=== PATIENT | female | born 1950 | race Caucasian/White ===

== ENCOUNTER → 2017-03-12 | Outpatient (CLI) | payer MEDICARE ==
--- NOTE | 2017-03-15 10:18 | MM ---
Reason for exam: screening (asymptomatic). Last mammogram was performed 1 year ago. History: Patient is postmenopausal. Family history of breast cancer in 2 paternal aunts. Took hormonal contraceptives for 3 years. Physical Findings: A clinical breast exam by your physician is recommended on an annual basis and results should be correlated with mammographic findings. MG 3D Screening Mammo W/Cad Bilateral CC and MLO view(s) were taken. Prior study comparison: March 10, 2016, bilateral MG 3d screening mammo w/cad. November 13, 2014, bilateral MG screening mammo w CAD. There are scattered fibroglandular densities. There is no discrete abnormality. No significant changes when compared with prior studies. ASSESSMENT: Negative, BI-RAD 1 RECOMMENDATION: Routine screening mammogram of both breasts in 1 year.
== END ==
LOC: RADMAMWWP 13:18
PROVIDERS: ATTEND Family Medicine
DX: Z12.31 Encounter for screening mammogram for malignant neoplasm of breast (principal)
CPT/HCPCS: 77063; G0202

== ENCOUNTER → 2018-04-01 | Outpatient (CLI) | payer MEDICARE ==
--- NOTE | 2018-04-05 14:29 | MM ---
Reason for exam: screening (asymptomatic). Last mammogram was performed 1 year and 1 month ago. History: Patient is postmenopausal. Family history of breast cancer in sister, breast cancer in paternal aunt, and breast cancer in aunt. Took hormonal contraceptives for 3 years. Physical Findings: A clinical breast exam by your physician is recommended on an annual basis and results should be correlated with mammographic findings. MG 3D Screening Mammo W/Cad Bilateral CC and MLO view(s) were taken. Prior study comparison: March 12, 2017, bilateral MG 3d screening mammo w/cad. March 10, 2016, bilateral MG 3d screening mammo w/cad. The breast tissue is almost entirely fat. There are typically benign round calcifications in both breasts. There is chronic nodularity bilaterally. There is no discrete abnormality. ASSESSMENT: Benign, BI-RAD 2 RECOMMENDATION: Routine screening mammogram of both breasts in 1 year.
== END | disposition home or self-care (01) ==
LOC: RADMAMWWP 07:34
PROVIDERS: ATTEND Family Medicine
DX: Z12.31 Encounter for screening mammogram for malignant neoplasm of breast (principal)
CPT/HCPCS: 77063; 77067

== ENCOUNTER → 2019-07-24 | Outpatient (CLI) | payer MEDICARE ==
--- NOTE | 2019-07-24 19:31 | BD ---
EXAMINATION TYPE: Axial Bone Density DATE OF EXAM: 07/24/2019 COMPARISON: 2014 CLINICAL HISTORY: 68-year-old female osteoporosis Height: 67 Weight: 180 FRAX RISK QUESTIONS: Alcohol (3 or more units per day): no Family History (Parent hip fracture): no Glucocorticoids (More than 3mos): no (Ex: prednisone, prednisolone, methylprednisolone, dexamethasone, and hydrocortisone). History of Fracture in Adulthood: yes Secondary Osteoporosis: 1. Type 1 Diabetes: no 2. Hyperthyroidism: no 3. Menopause before 45: no 4. Malnutrition: no 5. Chronic liver disease: no Rheumatoid Arthritis: no Current Tobacco Use: no RISK FACTORS HISTORY OF: Family History of Osteoporosis: yes Active: yes Diet low in dairy products/other sources of calcium: somewhat -casein intolerant Postmenopausal woman: yes Take estrogen and/or progesterone medications: not now How long: hormonal contraceptives about 3 years Lost more than 2 inches in height since high school: no Frequent falls: no Poor Health: no Hyperparathyroidism: no Adrenal Insufficiency: no MEDICATIONS: Prednisone or other steroids: no Thyroid Medications:no Osteoporosis Medications: no Additional Medications: calcium & Vitamin D Additional History: right lower leg fracture 1995 EXAM MEASUREMENTS: Bone mineral densitometry was performed using the [employer] System. Bone mineral density as measured about the Lumbar spine is: ----- L1-L4(G/cm2): 1.240 T Score Values are as follows: ----- L2: 0.3 ----- L3: 0.6 ----- L4: 0.5 ----- L1-L4: 0.5 Bone mineral density has: Decreased -3.1% since study of: 10/23/2015 Bone mineral density about the R hip (g/cm2): 0.825 Bone mineral density about the L hip (g/cm2): 0.892 T Score values are as follows: -----R Neck: -1.5 -----L Neck: -1.0 -----R Total: -0.4 -----L Total: -0.5 Bone mineral density has: Decreased -6.1% since study of: 10/23/2015 IMPRESSION: Osteopenia (T Score between -2.5 and -1). There is slightly increased risk of fracture and the patient may be considered for treatment. Re-Screen 2-5 years. NOTE: T-SCORE=SD OF THE YOUNG ADULT MEAN.
--- NOTE | 2019-07-25 11:24 | MM ---
Reason for exam: screening (asymptomatic). Last mammogram was performed 1 year and 4 months ago. History: Patient is postmenopausal. Family history of breast cancer in sister at age 65 and breast cancer in 2 paternal aunts. Took hormonal contraceptives for 3 years. Physical Findings: A clinical breast exam by your physician is recommended on an annual basis and results should be correlated with mammographic findings. MG 3D Screening Mammo W/Cad Bilateral CC and MLO view(s) were taken. Prior study comparison: April 01, 2018, bilateral MG 3d screening mammo w/cad. March 12, 2017, bilateral MG 3d screening mammo w/cad. There are scattered fibroglandular densities. There is chronic nodularity in the right breast. There is no discrete abnormality. ASSESSMENT: Benign, BI-RAD 2 RECOMMENDATION: Routine screening mammogram of both breasts in 1 year.
== END ==
LOC: RADMAMWWP 09:27
PROVIDERS: ATTEND Family Medicine
DX: Z12.31 Encounter for screening mammogram for malignant neoplasm of breast (principal); M89.9 Disorder of bone, unspecified; M85.80 Other specified disorders of bone density and structure, unspecified site
CPT/HCPCS: 77063; 77067; 77080

== ENCOUNTER → 2020-04-12 | Outpatient (CLI) | payer MEDICARE ==
--- NOTE | 2020-04-12 14:51 | XR ---
EXAMINATION TYPE: XR chest 2V DATE OF EXAM: 04/12/2020 COMPARISON: NONE HISTORY: Shortness of breath and sore throat for approximately 2 months. TECHNIQUE: Frontal and lateral views of the chest are obtained. FINDINGS: There is no focal air space opacity, pleural effusion, or pneumothorax seen. The cardiac silhouette size is within normal limits. The osseous structures are intact. Very minimal degenerati ve change of the spine. IMPRESSION: No acute cardiopulmonary process.
--- NOTE | 2020-04-12 14:54 | XR ---
EXAMINATION TYPE: XR soft tissue neck DATE OF EXAM: 04/12/2020 COMPARISON: NONE HISTORY: Shortness of breath and sore throat for approximately 2 months TECHNIQUE: Frontal and lateral views of the soft tissues the neck were obtained FINDINGS: There is sclerosis and a mild compression deformity of C5. Moderate degenerative change of the mid to lower cervical spine demonstrated as uncovertebral hypertrophy, intervertebral disc space narrowing and anterior osteophytes. No abnormal prevertebral soft tissue swelling. Epiglottis is unremarkable. Oropharynx and nasopharynx are maintained. Cricoid and arytenoid calcifie d cartilage with no suspicious radiopaque foreign body. Lung apices are well aerated. IMPRESSION: Sclerotic compression deformity of C5 is age indeterminate. Sclerosis could indicate chronic disease manager nicity or pathologic compression deformity. MRI of the cervical spine with and without contrast is re commended for further evaluation. Correlation for point tenderness also recommended. A Yellow level critical message alert has been initiated for Martita Gardner MD via the [employer] Critical Results System on 04/12/2020 2:51 PM. This message alert has been sent to Martita puente MD via the preferences provided by the clinician for the receipt of Radiology Critical Findings. Message ID [id number].
== END | disposition home or self-care (01) ==
LOC: RADXRMAIN 14:19
PROVIDERS: ATTEND Family Medicine
DX: R13.19 Other dysphagia (principal); R06.00 Dyspnea, unspecified
CPT/HCPCS: 70360; 71046

== ENCOUNTER → 2020-04-16 | Outpatient (CLI) | payer MEDICARE | END | disposition home or self-care (01) | LOC: RADMRIMAIN 07:08 | PROVIDERS: ATTEND Nurse Practitioner | DX: Z53.9 Procedure and treatment not carried out, unspecified reason (principal) ==

== ENCOUNTER → 2020-04-17 | Outpatient (CLI) | payer MEDICARE ==
--- NOTE | 2020-04-17 16:59 | MR ---
EXAMINATION TYPE: MR cervical spine wo/w con DATE OF EXAM: 04/17/2020 COMPARISON: HISTORY: Pathologic cervical disc degeneration, restricted air flow CONTRAST: Standard multiplanar, multisequence MRI departmental protocol utilizing 8.5 mL intravenous Gadavist g adolinium contrast. The cervical vertebra have normal alignment. There is degenerative disc space narrowing and decreased signal in the disks on the T2 images from C4 to C7. There is small posterior disc herniations at C5- 6 and C6-7. There is developmentally adequate spinal canal and no spinal stenosis. Cervical spinal co rd has normal signal pattern. There is no edema. Spinal canal measures almost 10 mm at C5-6 and C6-7. The brainstem is intact. There is no compression fracture. There is moderate anterior osteophyte for mation at C5-6 and C6-7. There is no cervical paraspinal mass. There is multilevel mild cervical hype rtrophic facet arthropathy. The contrast images show no pathologic enhancement. IMPRESSION: Mild posterior disc herniations at C5-6 and C6-7. No spinal stenosis. No fracture. Hypertrophic degen erative changes.
== END | disposition home or self-care (01) ==
LOC: RADMRIMAIN 15:36
PROVIDERS: ATTEND Nurse Practitioner
DX: M50.222 Other cervical disc displacement at C5-C6 level (principal); M47.812 Spondylosis without myelopathy or radiculopathy, cervical region
CPT/HCPCS: 72156; A9585

== ENCOUNTER → 2020-05-09 | Outpatient (CLI) | payer MEDICARE ==
--- NOTE | 2020-05-09 10:45 | FL ---
EXAMINATION TYPE: FL barium swallow DATE OF EXAM: 05/09/2020 CLINICAL INDICATION: 69 year-old female R13.19, M50.30 DYSPHAGIA, CERVICAL DISC DEGENERATION COMPARISON: Correlation MRI cervical spine 04/17/2020 Total Fluoroscopy Time: 1 minute 41 seconds Coronal images: 40 FINDINGS: The swallowing mechanism is normal. There is anterior endplate spondylosis relating to moderate degenerative disc disease at C5-C6 and C6 -C7 causing mild impression on the posterior wall of the upper cervical esophagus. There is also mild hypertrophy of the cricopharyngeus muscle noted. The thoracic portion has a normal course and caliber. Mild tertiary peristaltic contractions are demo nstrated. The mucosa appears normal. No suspicious filling defect is encountered. There is a tiny sliding hiatal hernia. Gastroesophageal reflux could not be elicited during the cours e of the exam. IMPRESSION: 1. Moderate endplate spondylosis at C5-C6 and C6-C7 causing mild impression along the posterior wall of the upper cervical esophagus. No obstructive change. 2. Additional mild CP muscle hypertrophy. 3. Mild esophageal dysmotility, age-related change. 4. Tiny sliding hiatal hernia without gastroesophageal reflux.
== END | disposition home or self-care (01) ==
LOC: RADUSWWP 09:45
PROVIDERS: ATTEND Family Medicine
DX: K22.4 Dyskinesia of esophagus (principal)
CPT/HCPCS: 74220

== ENCOUNTER → 2020-09-04 | Outpatient (CLI) | payer MEDICARE ==
--- NOTE | 2020-09-04 11:45 | US ---
EXAMINATION TYPE: US pelvic complete DATE OF EXAM: 09/04/2020 COMPARISON: NONE CLINICAL HISTORY: E28.9 Ovarian dysfunction. TECHNIQUE: Transvaginal (TV) and Transabdominal (TA) . Transabdominal sonographic images of the pel vis were acquired. Transvaginal sonographic images were medically necessary to better assess the fol lowing anatomy: Ovaries Date of LMP: post menopausal EXAM MEASUREMENTS: Uterus: 7.2 x 2.7 x 4.4 cm Endometrial Stripe: 0.6 cm Right Ovary: not visualized Left Ovary: 4.9 x 3.5 x 4.8 cm 1. Uterus: wnl 2. Endometrium: 0.3 cm of fluid seen within 3. Right Ovary: Obscured by overlying bowel gas 4. Left Ovary: Size appears enlarged considering patient is post menopausal 5. Bilateral Adnexa: wnl 6. Posterior cul-de-sac: wnl Urinary bladder is sonolucent. Posterior wall is normal. IMPRESSION: 1. Small amount of fluid within the endometrial canal.
== END | disposition home or self-care (01) ==
LOC: RADUSWWP 09:19
PROVIDERS: ATTEND Family Medicine
DX: N85.8 Other specified noninflammatory disorders of uterus (principal)
CPT/HCPCS: 76830; 76856

== ENCOUNTER → 2020-09-05 | Outpatient (CLI) | payer MEDICARE ==
--- NOTE | 2020-09-09 08:15 | MM ---
Reason for exam: screening (asymptomatic). Last mammogram was performed 1 year and 1 month ago. History: Patient is postmenopausal. Family history of breast cancer in sister at age 65 and breast cancer in 2 paternal aunts. Took hormonal contraceptives for 3 years. Physical Findings: A clinical breast exam by your physician is recommended on an annual basis and results should be correlated with mammographic findings. MG 3D Screening Mammo W/Cad Bilateral CC and MLO view(s) were taken. Prior study comparison: July 24, 2019, bilateral MG 3d screening mammo w/cad. April 01, 2018, bilateral MG 3d screening mammo w/cad. There are scattered fibroglandular densities. There is chronic nodularity in the right breast. There is no discrete abnormality. ASSESSMENT: Negative, BI-RAD 1 RECOMMENDATION: Routine screening mammogram of both breasts in 1 year.
== END | disposition home or self-care (01) ==
LOC: RADMAMWWP 07:53
PROVIDERS: ATTEND Family Medicine
DX: Z12.31 Encounter for screening mammogram for malignant neoplasm of breast (principal)
CPT/HCPCS: 77063; 77067

== ENCOUNTER → 2022-03-04 | Outpatient (CLI) | payer MEDICARE ==
--- NOTE | 2022-03-05 12:38 | MM ---
Reason for exam: screening (asymptomatic). Last mammogram was performed 1 year and 6 months ago. History: Patient is postmenopausal. Family history of breast cancer in sister at age 65 and breast cancer in 2 paternal aunts. Took hormonal contraceptives for 3 years. Physical Findings: A clinical breast exam by your physician is recommended on an annual basis and results should be correlated with mammographic findings. MG 3D Screening Mammo W/Cad Bilateral CC and MLO view(s) were taken. Prior study comparison: September 05, 2020, bilateral MG 3d screening mammo w/cad. July 24, 2019, bilateral MG 3d screening mammo w/cad. There are scattered fibroglandular densities. There are benign appearing round calcifications bilaterally. There is chronic nodularity in the right breast. There is no discrete abnormality. ASSESSMENT: Benign, BI-RAD 2 RECOMMENDATION: Routine screening mammogram of both breasts in 1 year.
== END | disposition home or self-care (01) ==
LOC: RADMAMWWP 11:32
PROVIDERS: ATTEND Family Medicine
DX: Z12.31 Encounter for screening mammogram for malignant neoplasm of breast (principal); Z78.0 Asymptomatic menopausal state; Z80.3 Family history of malignant neoplasm of breast
CPT/HCPCS: 77063; 77067

== ENCOUNTER → 2023-06-21 | Outpatient (CLI) | payer MEDICARE ==
--- NOTE | 2023-06-21 13:56 | MM ---
Reason for Exam: Screening (asymptomatic). Last mammogram was performed 1 year(s) and 4 month(s) ago. Patient History: Menarche at age 10. First Full-Term at age 22. Postmenopausal. Hormonal Contraceptives for 3 years until age 26. Paternal aunt had breast cancer. Paternal aunt had breast cancer. Sister had breast cancer, age 65. Risk Values: Carrie 5 year model risk: 3.7%. NCI Lifetime model risk: 8.9%. Prior Study Comparison: 07/24/2019 Bilateral Screening Mammogram, [facility]. 09/05/2020 Bilateral Screening Mammogram, [facility]. 03/04/2022 Bilateral Screening Mammogram, [facility]. Tissue Density: The breast tissue is almost entirely fat. Findings: Analyzed By CAD. There is no suspicious group of microcalcifications or new suspicious mass in either breast. Overall Assessment: Negative, BI-RAD 1 Management: Screening Mammogram of both breasts in [address] [facility] will attempt to contact patient to return for supplemental views and ultrasound if indicated. Patient should continue monthly self-breast exams. A clinical breast exam by your physician is recommended on an annual basis. This exam should not preclude additional follow-up of suspicious palpable abnormalities. Note on Carrie scores and lifetime risk: 1. A Carrie score greater than 3% is considered moderate risk. If this is the case, consider specialist referral to assess eligibility for a risk reducing agent. 2. If overall lifetime risk for the development of breast cancer is 20% or higher, the patient may qualify for future screening with alternating mammogram and breast MRI. Electronically signed and approved by: Marciano Licona DO
--- NOTE | 2023-06-21 14:23 | BD ---
EXAMINATION TYPE: Axial Bone Density DATE OF EXAM: 06/21/2023 CLINICAL HISTORY: 72 years old Female. ICD-10 CODE: Z78.0 ASYMPTOMATIC MENOPAUSAL STA Height: 66.1 Weight: 177 FRAX RISK QUESTIONS: Family History (Parent hip fracture): yes History of Fracture in Adulthood: yes RISK FACTORS HISTORY OF: hx of rt leg fx with surgical repair, 1997 Family History of Osteoporosis: yes Diet low in dairy products/other sources of calcium: yes Postmenopausal woman: yes Take estrogen and/or progesterone medications: bcps for about 3 yrs Hyperparathyroidism: no Adrenal Insufficiency: no MEDICATIONS: Additional Medications: vit d and calcium Additional History: nothing to note here EXAM MEASUREMENTS: Bone mineral densitometry was performed using the [employer] System. Bone mineral density as measured about the Lumbar spine is: ----- L1-L4(G/cm2): 1.265 T Score Values are as follows: ----- L1: 1.1 ----- L2: 0.8 ----- L3: -0.5 ----- L4: 1.2 ----- L1-L4: 0.7 Z Score Values are as follows: ----- L1: 2.3 ----- L2: 2.0 ----- L3: 0.8 ----- L4: 2.5 ----- L1-L4: 1.4 Bone mineral density has: Increased 2.0% since study of: 07.24.2019 Bone mineral density about the R hip (g/cm2): 0.919 Bone mineral density about the L hip (g/cm2): 0.937 T Score values are as follows: -----R Neck: -1.2 -----L Neck: -1.0 -----R Total: -0.7 -----L Total: -0.6 Z Score values are as follows: -----R Neck: 0.3 -----L Neck: 0.6 -----R Total: 0.6 -----L Total: 0.7 Bone mineral density has: Decreased -2.4% since study of: 07.24.2019 FRAX%s: The graph provided illustrates a 22.6% chance for a major osteoporotic fx and a 7.3% chance f or the hips probability for fx in 10 years time. IMPRESSION: Osteopenia (T Score between -2.5 and -1). There is slightly increased risk of fracture and the patient may be considered for treatment. Re-Screen 2-5 years. NOTE: T-SCORE=SD OF THE YOUNG ADULT MEAN.
== END | disposition home or self-care (01) ==
LOC: RADMAMWWP 12:50
PROVIDERS: ATTEND Family Medicine
DX: Z12.31 Encounter for screening mammogram for malignant neoplasm of breast (principal); M85.851 Other specified disorders of bone density and structure, right thigh; Z78.0 Asymptomatic menopausal state; Z80.3 Family history of malignant neoplasm of breast
CPT/HCPCS: 77063; 77067; 77080

== ENCOUNTER 2023-11-03 09:50 | Day surgery (SDC) | payer MEDICARE ==
[2023-10-29 12:13] VITALS: BMI 28.5
[~2023-11-03 09:50] MED LIST: LACTATED RINGERS 1,000 ML IV SCH; LIDOCAINE 1% (10MG/ML) FOR IV START INTRADERMA PRN
[2023-11-03 10:37] VITALS: TEMP 98.2
[2023-11-03] MEDS ORDERED: PROPOFOL 10 MG/ML 20 ML VIAL IV ONE (10:51)
--- NOTE | 2023-11-03 11:14 | P.PCN ---
Date of Procedure: 11/03/23 Procedure(s) Performed: BRIEF HISTORY: Patient is a 72-year-old [place] female scheduled for an elective colonoscopy as a part of screening for colon cancer/positive cologuard. PROCEDURE PERFORMED: Colonoscopy with snare polypectomy. PREOPERATIVE DIAGNOSIS: Screening for colon cancer/positive cologuard. IV sedation per Anesthesia. PROCEDURE: After informed consent was obtained, the patient, was brought into the endoscopy unit. IV sedation was administered by Anesthesia under continuous monitoring. Digital rectal examination was normal. Initially the Olympus CF-160 flexible video colonoscope was then inserted in the rectum, gradually advanced into the cecum without any difficulty. Careful examination was performed as the scope was gradually being withdrawn. Ileocecal valve and the appendiceal orifice were visualized and appeared normal. Prep was excellent. There was a 1 cm flat polyp noted on the inferior lip of the ileocecal valve that was removed by snare polypectomy. Mucosa of the cecum, appeared normal. In the ascending colon there was a 1 cm broad-based polyp removed by snare polypectomy. Rest of the ascending colon, transverse colon, descending colon, sigmoid colon, and rectum appeared normal. Scattered sigmoid diverticulosis. Retroflexion was performed in the rectum and no lesions were seen. The patient tolerated the procedure well. IMPRESSION: 1 cm flat polyp on the ileocecal valve status post snare polypectomy 1 cm broad-based ascending colon polyp status post snare polypectomy Scattered sigmoid diverticulosis RECOMMENDATIONS: Findings of this examination were discussed with the patient as well as a family. She was advised to follow with the biopsy results. If the biopsy results adenoma she can have a repeat colonoscopy in 3 years
[2023-11-03 11:52] VITALS: BP 135/74; PULSE 67; RESP 16
== END 2023-11-03 12:40 | disposition home or self-care (01) ==
LOC: ORWHC2ENDO 09:50
PROVIDERS: ATTEND Internal Medicine Gastroenterology
DX: K63.5 Polyp of colon (principal); K57.30 Diverticulosis of large intestine without perforation or abscess without bleeding; Z88.5 Allergy status to narcotic agent; Z98.891 History of uterine scar from previous surgery; Z90.89 Acquired absence of other organs; Z98.890 Other specified postprocedural states; Z79.899 Other long term (current) drug therapy
CPT/HCPCS: 45385; J2704; 88305

== ENCOUNTER → 2024-10-10 | Outpatient (CLI) | payer MEDICARE ==
--- NOTE | 2024-10-11 11:40 | MM ---
Reason for Exam: Screening (asymptomatic). Last mammogram was performed 1 year(s) and 4 month(s) ago. Patient History: Menarche at age 10. First Full-Term at age 22. Postmenopausal. Hormonal Contraceptives for 3 years until age 26. Paternal aunt had breast cancer, age 60. Paternal aunt had breast cancer, age 45. Sister had breast cancer, age 65. Risk Values: Carrie 5 year model risk: 3.7%. NCI Lifetime model risk: 8.4%. Prior Study Comparison: 09/05/2020 Bilateral Screening Mammogram, [facility]. 03/04/2022 Bilateral Screening Mammogram, [facility]. 06/21/2023 Bilateral MG 3D screening mammo w/cad, [facility]. Tissue Density: There are scattered areas of fibroglandular density. Findings: Analyzed By CAD. Right breast: There is no suspicious group of microcalcifications or new suspicious mass. Left breast: There is no suspicious group of microcalcifications or new suspicious mass. Overall Assessment: Negative, BI-RAD 1 Management: Screening Mammogram of both breasts in [address] [facility] will attempt to contact patient to return for supplemental views and ultrasound if indicated. Patient should continue monthly self-breast exams. A clinical breast exam by your physician is recommended on an annual basis. This exam should not preclude additional follow-up of suspicious palpable abnormalities. Note on Carrie scores and lifetime risk: 1. A Carrie score greater than 3% is considered moderate risk. If this is the case, consider specialist referral to assess eligibility for a risk reducing agent. 2. If overall lifetime risk for the development of breast cancer is 20% or higher, the patient may qualify for future screening with alternating mammogram and breast MRI. [facility], , 10/11/2024 10:35 AM. Electronically signed and approved by: Marciano Licona DO
== END | disposition home or self-care (01) ==
LOC: RADMAMWWP 14:31
PROVIDERS: ATTEND Family Medicine
DX: Z12.31 Encounter for screening mammogram for malignant neoplasm of breast (principal); R92.323 Mammographic fibroglandular density, bilateral breasts; Z78.0 Asymptomatic menopausal state; Z80.3 Family history of malignant neoplasm of breast
CPT/HCPCS: 77063; 77067